=== PATIENT | female | born 1995 | race Two or more races ===

== ENCOUNTER 2019-05-09 12:27 | Emergency (ER) | payer OTHER ==
[~2019-05-09] VITALS: Ht 157.5 cm; Wt 57.6 kg
[2019-05-09 12:45] VITALS: BP 133/85
--- NOTE | 2019-05-09 12:53 | Emergency Room Report ---
History of Present Illness General Chief Complaint: Sore Throat Source: Patient Present Illness HPI 23-year-old female with no symptom past medical history complaining of 2 weeks of a 10 out of 10 sore throat, congestion and minor cough. Denies fever and chills at this time however reports that 10 days ago patient started having fever. Has not taken medication of than ibuprofen and Tylenol for symptom relief. Denies ear pain, chest pain, shortness of breath, palpitation, abdominal pain, nausea vomiting. Is up-to-date with immunization. Allergies: Coded Allergies: No Known Allergies (Unverified , 05/09/19) Patient History Past Medical History: see triage record Past Surgical History: unable to obtain Pertinent Family History: none Last Menstrual Period: mar 27 Now: No Immunizations: UTD Reviewed Nursing Documentation: PMH: Agreed; PSxH: Agreed Nursing Documentation-PMH Past Medical History: No Stated History Review of Systems All Other Systems: negative except mentioned in HPI Physical Exam Vital Signs Date Time Temp Pulse Resp B/P (MAP) Pulse Ox O2 Delivery O2 Flow Rate FiO2 05/09/19 12:42 97.0 97 20 133/85 (101) 97 Room Air Sp02 EP Interpretation: reviewed, normal General Appearance: no apparent distress, alert, GCS 15, non-toxic Head: normocephalic, atraumatic Eyes: bilateral eye normal inspection, bilateral eye PERRL ENT: hearing grossly normal, no angioedema, normal voice, TMs + canals normal, nasal congestion, tonsillar swelling, other - frontal sinus ttp Neck: full range of motion, supple/symm/no masses Respiratory: chest non-tender, lungs clear, normal breath sounds, no rhonchi, no wheezing, speaking full sentences Cardiovascular #1: regular rate, rhythm, no edema, no murmur, normal capillary refill Gastrointestinal: normal bowel sounds, non tender, soft, non-distended, no guarding, no rebound Rectal: deferred Genitourinary: no CVA tenderness Musculoskeletal: back normal Neurologic: alert, motor strength/tone normal, oriented x3, sensory intact, responsive, speech normal Psychiatric: judgement/insight normal, memory normal, mood/affect normal, no suicidal/homicidal ideation Skin: no rash Lymphatic: no adenopathy Medical Decision Making PA Attestation All my diagnosis and treatment plans were reviewed ad discussed with my supervising physician Dr. Hickey Diagnostic Impression: Primary Impression: Sinusitis ER Course 23-year-old female with no symptom past medical history complaining of 2 weeks of a 10 out of 10 sore throat, congestion and minor cough. Denies fever and chills at this time however reports that 10 days ago patient started having fever. Has not taken medication of than ibuprofen and Tylenol for symptom relief. Denies ear pain, chest pain, shortness of breath, palpitation, abdominal pain, nausea vomiting. Is up-to-date with immunization. Ddx considered but are not limited to: strep pharyngitis, URI, tonsillitis, peritonsillar abscess, influenza, sinusitis Vital signs: are WNL, pt. is afebrile H&PE are most consistent with: Sinusitis ORDERS: Augmentin, Antonio-D ED INTERVENTIONS: None required at this time. DISCHARGE: At this time pt. is stable for d/c to home. Will provide printed patient care instructions, and any necessary prescriptions. Care plan and follow up instructions have been discussed with the patient prior to discharge. Patient to follow-up with primary care provider, take medication as directed, worsening symptoms return to the emergency room Last Vital Signs Date Time Temp Pulse Resp B/P (MAP) Pulse Ox O2 Delivery O2 Flow Rate FiO2 05/09/19 12:42 97.0 97 20 133/85 (101) 97 Room Air Disposition: HOME, SELF-CARE Condition: Stable Scripts Fexofenadine/Pseudoephedrine (ANTONIO-D 12 HOUR TABLET) 1 Each Tab.er.12h 1 EACH PO BID, #20 TAB Prov: Nic Ellington 05/09/19 Amoxicillin/Potassium Clav 875-125* (AUGMENTIN 875-125 TABLET*) 1 Each Tablet 1 TAB ORAL TWICE A DAY for 10 Days, #20 TAB Prov: Nic Ellington 05/09/19 Patient Instructions: Sinusitis, Adult, [id number] Additional Instructions: Take medication as directed, follow-up with your primary care provider, if worsening symptoms return to the emergency room Nic Ellington May 09, 2019 12:53
[2019-05-09] MEDS ORDERED: AUGMENTIN 875-1 EAC1 ORAL (12:54)
[2019-05-09] MEDS ORDERED: ALLEGRA-D 12 H1 EACH PO (12:54)
[2019-05-09 13:00] VITALS: BP 133/85
== END 2019-05-09 13:00 | disposition home or self-care (01) ==
LOC: EMR 12:55
DX: J32.9 Chronic sinusitis, unspecified (principal)
CPT/HCPCS: 99282